=== PATIENT | female | born 1965 | race Caucasian/White ===

== ENCOUNTER 2017-09-01 12:44 | Day surgery (SDC) | payer BC ==
[~2017-09-01 12:44] MED LIST: Buffered Lidocaine 0.9% SYRIN* 5 ML/SYR SYRINGE INTRADERM ONE; Famotidine IV* 10 MG/ML 2 ML (20 mg) IV ONE
[2017-09-01] MEDS ORDERED: Famotidine IV* 10 MG/ML 2 ML (20 mg) ONE (13:01)
[2017-09-01] MEDS ORDERED: ceFAZolin 2 GM PREMIX (*) 2 GM/50 ML BAG IVPB ONE (13:01)
[2017-09-01] MEDS ORDERED: fentaNYL* 50 MCG/ML 2 ML VIAL (100 MCG VIAL) ONE (13:52)
[2017-09-01] MEDS ORDERED: Lidocaine 2% PF * 5 ML VIAL ONE (13:52)
[2017-09-01] MEDS ORDERED: Ondansetron INJ* 2 MG/ML VIAL ONE (13:52)
[2017-09-01] MEDS ORDERED: Propofol* 10 MG/ML 20 ML BTL IV PUSH ONE ×2 (13:52→15:44)
[2017-09-01] MEDS ORDERED: KETAMINE HCL* 50 MG/ML 10 ML VIAL ONE (13:52)
[2017-09-01] MEDS ORDERED: Midazolam* 1 MG/ML 5 ML VIAL (5 MG) ONE (13:52)
[2017-09-01] MEDS ORDERED: Dexamethasone IV* 4 MG/ML 1 ML (4 MG) ONE (13:52)
[2017-09-01] MEDS ORDERED: Methylene Blue 0.5 %* 50 MG/10 ML AMP IV ONE (14:20)
[2017-09-01] MEDS ORDERED: Lidocain 1% EPI 1:100,000 * 30 ML MDV ONE (14:20)
[2017-09-01] MEDS ORDERED: Petrolatum 5 GM* 5 GM PACKET ONE (14:20)
[2017-09-01] MEDS ORDERED: Midazolam* 1 MG/ML 2 ML VIAL (2 MG) ONE (14:56)
[2017-09-01] MEDS ORDERED: oxyCODONE/Acetamin 5/325 MG* TAB PO PRN (15:26)
[2017-09-01] MEDS ORDERED: fentaNYL* 50 MCG/ML 2 ML VIAL (100 MCG VIAL) IV PRN (15:26)
[2017-09-01] MEDS ORDERED: Naloxone* 0.4 MG/ML 1 ML VIAL IV PRN (15:26)
[2017-09-01] MEDS ORDERED: Ondansetron INJ* 2 MG/ML VIAL IV PRN (15:26)
[2017-09-01 16:36] VITALS: BP 121/74
== END 2017-09-01 16:49 | disposition home or self-care (01) ==
LOC: OR 12:44
PROVIDERS: ATTEND Plastic Surgery
DX: C44.01 Basal cell carcinoma of skin of lip (principal); Z72.0 Tobacco use; F41.8 Other specified anxiety disorders; K21.9 Gastro-esophageal reflux disease without esophagitis; E66.9 Obesity, unspecified
CPT/HCPCS: 88305; 88331; 88332; A9270-GY; J0690; J1100; J2250; J2405; J2704; J3010

== ENCOUNTER 2019-02-02 14:36 | Emergency (ER) | payer BC ==
--- NOTE | 2019-02-02 14:55 | UC ---
Laceration HPI - HPI Summary HPI Summary: 53 yo woman with laceration of left index finger yesterday morning while washing dishes. Primary care physician is Dr. Carr. --last tetanus booster was 03/22/18 according to their office. - History Of Current Complaint Stated Complaint: LEFT INDEX FINGER LACERATION Time Seen by Provider: 02/02/19 14:47 Hx Obtained From: Patient Hx Last Menstrual Period: uterine ablation/no cycles Laceration Location: Finger - left second digit Mechanism Of Injury: Sharp Trauma Onset/Duration: Sudden Onset Severity: Mild Aggravating Factors: Position Related History: Dominant Hand Right - Allergies/Home Medications Allergies/Adverse Reactions: Allergies Allergy/AdvReac Type Severity Reaction Status Date / Time No Known Allergies Allergy Verified 02/02/19 14:45 Home Medications: Home Medications Acetaminophen [Acetaminophen Extra Strength] 500 mg PO ONCE PRN 02/02/19 [ History Confirmed 02/02/19] Omeprazole 20 mg PO QPM 02/02/19 [History Confirmed 02/02/19] Venlafaxine TAB (NF) [Effexor TAB (NF)] 33 mg PO QPM 02/02/19 [History Confirmed 02/02/19] PMH/Surg Hx/FS Hx/Imm Hx GI/ History: Gastroesophageal Reflux Neurological History: Migraine - Surgical History Surgical History: Yes Surgery Procedure, Year, and Place: 08/2014 neck disc replaced and fusion; oopherectomy approx 2009, uterine ablation 2012, left kidney lithotripsy. laparoscopic exploratory in abdomen 40 years ago - Family History Known Family History: Positive: Non-Contributory - Social History Occupation: Employed Full-time Lives: With Family Alcohol Use: Occasionally Substance Use Type: None Smoking Status (MU): Current Every Day Smoker Amount Used/How Often: 2-4 cigarettes a day, smoked off and on 10 years Review of Systems All Other Systems Reviewed And Are Negative: Yes Constitutional: Positive: Negative Skin: Positive: Negative Eyes: Positive: Negative ENT: Positive: Negative Respiratory: Positive: Negative Cardiovascular: Positive: Negative Gastrointestinal: Positive: Negative Genitourinary: Positive: Other - takes venlafaxine for hot flashes with good effect Motor: Positive: Negative Neurovascular: Positive: Negative - normal sensation distal left index finger Musculoskeletal: Positive: Negative Neurological: Positive: Other - gets migraines about 3x per month despite preventative propranolol Psychological: Positive: Negative Is Patient Immunocompromised?: No Physical Exam Triage Information Reviewed: Yes Appearance: Well-Appearing, Pain Distress - moderate with digital movement. Neck: Positive: Supple, Nontender, No Lymphadenopathy Respiratory: Positive: Lungs clear, Normal breath sounds Cardiovascular: Positive: RRR, No Murmur Musculoskeletal: Positive: ROM Limited @ - left PIP joint; able to flex and extend the digit at both the PIP and DIP joints, but limited by pain. PIP joint with mild swelling and eryhema. Neurological Exam: Normal Psychological Exam: Normal Skin Exam: Other - erythematous streak over the proximal phalanx stopping short of the MCP joint. Laceration Repair - Laceration Repair 1 Description: Linear : No Repair Necessary Laceration Size After Repair: Length (cm) - 1.5 cm curvilinear laceration distal to the PIP joint, margins well approximated. Laceration Course/Dx - Course/Dx Course Of Treatment: No repair indicated based on duration since injury and wound does not open with movement of the joint. Given erythema, will cover with antibiotic. Dressing applied with finger in extension. Follow up with Dr. Rutledge is scheduled for 02/04/19 - Differential Dx - Laceration/Wound Differental Diagnoses: Laceration - Diagnosis Provider Diagnosis: Laceration of left index finger, Cellulitis of left index finger Discharge ED - Sign-Out/Discharge Documenting (check all that apply): Patient Departure All imaging exams completed and their final reports reviewed: No Studies - Discharge Plan Condition: Stable Disposition: HOME Prescriptions: Cephalexin CAP* [Keflex 500 CAP*] 500 mg PO TID #21 cap Patient Education Materials: Finger Laceration (ED), Cellulitis (ED) Referrals: Ben Carr MD [Primary Care Provider] - Additional Instructions: Please keep the present dressing on your finger until reassessed by Dr. Rutledge ( unless it becomes wet or soiled). You have been prescribed cephalexin to treat early infection in the wound. Please take the full course of antibiotics. Use ibuprofen 600mg up to 4 times per day as needed for pain. Follow up earlier if you develop fever or increased swelling in the finger or hand. - Billing Disposition and Condition Condition: STABLE Disposition: Home
[2019-02-02 15:01] VITALS: BP 147/77
== END 2019-02-02 15:27 | disposition home or self-care (01) ==
LOC: UCCORT 14:36
DX: S61.211A Laceration without foreign body of left index finger without damage to nail, initial encounter (principal); L03.012 Cellulitis of left finger; K21.9 Gastro-esophageal reflux disease without esophagitis; F17.210 Nicotine dependence, cigarettes, uncomplicated; Z79.899 Other long term (current) drug therapy; X58.XXXA Exposure to other specified factors, initial encounter; Y93.G1 Activity, food preparation and clean up; Y92.9 Unspecified place or not applicable
CPT/HCPCS: 99212; G0463